=== PATIENT | female | born 1940 | race American Indian/Alaskan Native ===

== ENCOUNTER 2017-12-05 17:59 | Emergency (ER) | payer MEDICARE ==
[2017-12-05] MEDS ORDERED: BOOSTRIX IM ONE ×2 (19:38→23:05)
--- NOTE | 2017-12-05 19:48 | Emergency Department Report ---
HPI - General Chief Complaint: Fall Time Seen by Provider: 12/05/17 18:52 - HPI HPI: 77-year-old female presents to the emergency department via EMS from [facility] after she fell while getting out of bed and hit her forehead on something in the bedroom. It does not sound like the patient lost consciousness but it is unknown. She has a small laceration or abrasion to the left eyebrow. There is a note that the patient was previously holding her right arm and shoulder but currently she denies any other areas of discomfort. She has a past medical history of hypertension, non-insulin- dependent diabetes, gout. 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 It does not appear as if the patient is up-to-date with her tetanus boosters. ED Past Medical Hx - Past Medical History Hx Hypertension: Yes Hx CVA: Yes Hx Diabetes: Yes Hx Seizures: Yes Additional medical history: Gout, Muscle Weakness, Dyspagia, - Medications Home Medications: Home Medications Medication Instructions Recorded Confirmed Last Taken Type Nitrofurantoin [place]/M-Cryst 100 mg PO BID #14 capsule 12/06/17 Unknown Rx [Macrobid CAP] ED Review of Systems ROS: Stated complaint: FALL/HIT HEAD Other details as noted in HPI Comment: All other systems reviewed and negative Constitutional: denies: chills, fever Eyes: denies: eye pain, eye discharge, vision change ENT: denies: ear pain, throat pain Respiratory: denies: cough, shortness of breath, wheezing Cardiovascular: denies: chest pain, palpitations Gastrointestinal: denies: abdominal pain, nausea, diarrhea Genitourinary: denies: urgency, dysuria, discharge Musculoskeletal: denies: back pain, joint swelling, arthralgia Skin: other (laceration / abrasion to the left eyebrwo). denies: rash, lesions Neurological: denies: numbness, paresthesias Physical Exam - Physical Exam Vital Signs: Vital Signs 12/05/17 19:20 Temperature 98.5 F Pulse Rate 80 Respiratory 21 Rate Blood Pressure 160/88 O2 Sat by Pulse 94 Oximetry Physical Exam: GENERAL: The patient is well-developed well-nourished. HENT: Normocephalic. Atraumatic. Patient has moist mucous membranes. EYES: Extraocular motions are intact. Pupils equal reactive to light bilaterally. NECK: Supple. Trachea is midline. CHEST/LUNGS: Clear to auscultation. There is no respiratory distress noted. HEART/CARDIOVASCULAR: Regular. There is no tachycardia. There is no murmur. ABDOMEN: Abdomen is soft, nontender. Patient has normal bowel sounds. There is no abdominal distention. SKIN: Skin is warm and dry. NEURO: The patient is awake, alert and cooperative. The patient has normal speech. Cranial nerves II through XII grossly intact. MUSCULOSKELETAL: There is no tenderness or deformity. There is no evidence of acute injury. ED Course Vital Signs 12/05/17 19:20 Temperature 98.5 F Pulse Rate 80 Respiratory 21 Rate Blood Pressure 160/88 O2 Sat by Pulse 94 Oximetry ED Medical Decision Making - Lab Data Result diagrams: 12/05/17 20:08 12/05/17 20:08 - Radiology Data Radiology results: report reviewed, image reviewed interpreted by me: Chest x-ray does not show any acute process. There are no pleural effusions, obvious pneumonia and there is no pneumothorax. X-ray of the pelvis does not show any fracture, dislocation or any other acute process. EXAM: CT CERVICAL SPINE WO CON HISTORY: Fall TECHNIQUE: Spiral CT scanning of the cervical spine, with axial and multiplanar reformations. PRIORS: None. FINDINGS: Diffuse osteopenia. Mild dextroconvex curvature may be positional versus soft tissue spasm. Mild rightward rotation of C1 relative to C2 may be positional versus rotatory subluxation. Multilevel degenerative disc disease and spondylosis. No acute compression deformity or gross malalignment of cervical vertebral bodies. No acute fracture identified. No acute, osseous central spinal canal encroachment. Paraspinal soft tissues grossly unremarkable. Probable left pleural effusion partially visualized. IMPRESSION: 1. No acute compression deformity or apparent fracture in the cervical spine. 2. Degenerative spondylosis. Transcribed By: [facility] Dictated By: BENJAMIN SHARMA MD Electronically Authenticated By: BENJAMIN SHARMA MD Signed Date/Time: 12/05/17 2800 EXAM: CT FACIAL BONES WO CON HISTORY: Fall TECHNIQUE: Spiral CT scanning of the facial bones with multiplanar reformations. PRIORS: None. FINDINGS: No acute fracture. Mandible, zygomatic arches, orbits, paranasal sinuses, and pterygoid plates appear intact. Optic globes grossly intact. Patient is edentulous. IMPRESSION: 1. No acute fracture. Transcribed By: [facility] Dictated By: BENJAMIN SHARMA MD Electronically Authenticated By: BENJAMIN SHARMA MD Signed Date/Time: 12/05/17 4188 EXAM: CT HEAD/BRAIN WO CON HISTORY: Fall TECHNIQUE: Noncontrast CT axial images of the brain. PRIORS: None. FINDINGS: No parenchymal mass, mass effect, hemorrhage, midline shift or hydrocephalus. No evidence of acute cortical infarct. No abnormal, extra-axial fluid or air collection. Mild, patchy low density in the periventricular and subcortical white matter is nonspecific, but may relate to chronic small vessel ischemic change. Age-related volume loss. Osseous calvarium grossly intact. Diffuse mucosal thickening and opacification of left middle ear cavity and mastoid air complex. Partial opacification of right mastoid air complex. IMPRESSION: 1. No acute intracranial findings. 2. Chronic ischemic and atrophic changes. 3. Left otomastoiditis and mild right mastoid sinus disease. Transcribed By: [facility] Dictated By: BENJAMIN SHARMA MD Electronically Authenticated By: BENJAMIN SHARMA MD Signed Date/Time: 12/05/17 0738 - Medical Decision Making The patient presented for evaluation from her halfway after was some type of a fall out of bed where she hit the forehead and caused a small abrasion/ laceration. The patient has not been ambulatory for the past 3-4 months so it is not known exactly how the patient had a fall out of bed. She is awake, cooperative and at what her family says is her baseline mental status. She is a small abrasion or laceration to the left eyebrow that does not appear to need any type of significant closure. CT of the head, CT of the cervical spine and CT of the facial bones were done that did not show any fracture, dislocation or any other acute processes. X-rays were done of the chest and pelvis and also did not show any acute process. Patient's labs did show a urinary tract infection and the patient was placed on antibiotics. The door to the patient's labs were unremarkable but she did have some anemia with hemoglobin of 7.7 but she does have a history of anemia and has required transfusions in the past. The patient also has some elevation in her liver function enzymes. I spoke with the sequins winder who felt that these liver lab abnormalities can be worked up at the outpatient setting. Patient had some hypertension but came down with a dose of blood pressure medication. Otherwise her vital signs are stable throughout her ED course including being afebrile. The patient did have some mild sundowning and some agitation prior to getting the CT imaging and did require 1 dose of Ativan that seemed to help her throughout the rest of her ED course. All the labs, imaging results were discussed with the patient and her family. She will be returned to her halfway where the patient will need to see her primary care physician and possibly outpatient gastroenterology. They've been instructed to return the patient to the emergency Department with any worsening of her symptoms or any acute distress. - Differential Diagnosis fracture, brain bleed, laceration, abrasion, dementia, UTI Critical Care Time: No Critical care attestation.: If time is entered above; I have spent that time in minutes in the direct care of this critically ill patient, excluding procedure time. ED Disposition Clinical Impression: Elevated liver enzymes Fall Qualifiers: Encounter type: initial encounter Qualified Code(s): W19.XXXA - Unspecified fall, initial encounter Abrasion of left eyebrow Qualifiers: Encounter type: initial encounter Qualified Code(s): S00.212A - Abrasion of left eyelid and periocular area, initial encounter Anemia Qualifiers: Anemia type: unspecified type Qualified Code(s): D64.9 - Anemia, unspecified Hypertension Qualifiers: Hypertension type: essential hypertension Qualified Code(s): I10 - Essential ( primary) hypertension UTI (urinary tract infection) Qualifiers: Urinary tract infection type: acute cystitis Hematuria presence: with hematuria Qualified Code(s): N30.01 - Acute cystitis with hematuria Disposition: DC- TO HOME OR SELFCARE Is pt being admited?: No Condition: Stable Instructions: Abrasion (ED), Hypertension (ED), Anemia (ED), Fall Prevention ( ED) Additional Instructions: Please make sure that you follow up with your primary care physician regarding the elevated liver enzymes and your recent fall. Return to the emergency Department with any worsening of your symptoms or any acute distress. Make sure that you received your blood pressure medications and that a blood pressure log is kept. Try to stay away from foods that are high in salt and caffeinated products. Prescriptions: Nitrofurantoin [place]/M-Cryst [Macrobid CAP] 100 mg PO BID #14 capsule Referrals: PRIMARY CARE, [Primary Care Provider] - [facility]ULI Time of Disposition: 23:44
[2017-12-05 20:24] LABS: Hemoglobin 7.7 gm/dl (10.1-14.3); Mean Corpuscular HGB Conc 33 % (30-34); Mean Corpuscular Hemoglobin 27 pg (28-32); Mean Corpuscular Volume 80 fl (79-97); Red Blood Count 2.88 M/mm3 (3.65-5.03); Red Cell Distribution Width 16.8 % (13.2-15.2)
[2017-12-05 20:33] LABS: INR 1.19 (0.87-1.13)
[2017-12-05 20:34] LABS: Partial Thromboplastin Time 31.5 Sec. (24.2-36.6)
[2017-12-05 20:42] LABS: Alanine Aminotransferase 130 units/L (7-56); Albumin 2.8 g/dL (3.9-5); BUN/Creatinine Ratio 50; Blood Urea Nitrogen 25 mg/dL (7-17); Calcium 8.9 mg/dL (8.4-10.2); Hemolysis Index 5
[2017-12-05] MEDS ORDERED: NORMODYNE IV ONE ×2 (20:49→23:30)
[2017-12-05] MEDS ORDERED: APRESOLINE IV ONE (20:49)
[2017-12-05] MEDS ORDERED: ATIVAN ONE (21:56)
--- NOTE | 2017-12-05 21:56 | XRay Report ---
FINAL REPORT EXAM: XR CHEST 1V AP HISTORY: Fall TECHNIQUE: Single, portable chest x-ray. PRIORS: None. FINDINGS: Cardiac and mediastinal silhouette within normal limits. Lungs show partially confluent, parenchymal opacities projected over the right perihilar region and left lower lung, with some obscuration of left costophrenic angle. No other focal consolidation or apparent pneumothorax. Bony thorax without acute abnormality. IMPRESSION: 1. Findings which may represent atelectasis, infiltrates or postinflammatory change scattered in right perihilar region left lower lung, although posttraumatic change and contusions not completely excluded. Clinical correlation and radiographic followup after 4-6 weeks advised to document resolution.
[2017-12-05 21:58] LABS: Band Neutrophils # (Manual) 0.6 K/mm3; Basophils % (Manual) 0 % (0.0-1.8); Total Cells Counted 100
--- NOTE | 2017-12-05 21:58 | XRay Report ---
FINAL REPORT EXAM: XR PELVIS 1-2V HISTORY: fall TECHNIQUE: AP view of pelvis. PRIORS: None. FINDINGS: Dextroscoliotic and degenerative change in visualized lower lumbar spine. Mild degenerative changes scattered in the bilateral hip joints. No apparent fracture or dislocation. Soft tissues grossly unremarkable. Probable percutaneous enteric tube partially visualized. IMPRESSION: 1. No acute osseous abnormality. 2. Degenerative changes.
[2017-12-05 21:59] LABS: Anisocytosis 1+; Hypochromasia 1+; Large Platelets 1+; Platelet Estimate Appears Decreased
[2017-12-05 22:00] LABS: Platelet Count 95 K/mm3 (140-440)
--- NOTE | 2017-12-05 22:34 | Cat Scan Report ---
FINAL REPORT EXAM: CT HEAD/BRAIN WO CON HISTORY: Fall TECHNIQUE: Noncontrast CT axial images of the brain. PRIORS: None. FINDINGS: No parenchymal mass, mass effect, hemorrhage, midline shift or hydrocephalus. No evidence of acute cortical infarct. No abnormal, extra-axial fluid or air collection. Mild, patchy low density in the periventricular and subcortical white matter is nonspecific, but may relate to chronic small vessel ischemic change. Age-related volume loss. Osseous calvarium grossly intact. Diffuse mucosal thickening and opacification of left middle ear cavity and mastoid air complex. Partial opacification of right mastoid air complex. IMPRESSION: 1. No acute intracranial findings. 2. Chronic ischemic and atrophic changes. 3. Left otomastoiditis and mild right mastoid sinus disease.
--- NOTE | 2017-12-05 22:54 | Cat Scan Report ---
FINAL REPORT EXAM: CT FACIAL BONES WO CON HISTORY: Fall TECHNIQUE: Spiral CT scanning of the facial bones with multiplanar reformations. PRIORS: None. FINDINGS: No acute fracture. Mandible, zygomatic arches, orbits, paranasal sinuses, and pterygoid plates appear intact. Optic globes grossly intact. Patient is edentulous. IMPRESSION: 1. No acute fracture.
--- NOTE | 2017-12-05 22:57 | Cat Scan Report ---
FINAL REPORT EXAM: CT CERVICAL SPINE WO CON HISTORY: Fall TECHNIQUE: Spiral CT scanning of the cervical spine, with axial and multiplanar reformations. PRIORS: None. FINDINGS: Diffuse osteopenia. Mild dextroconvex curvature may be positional versus soft tissue spasm. Mild rightward rotation of C1 relative to C2 may be positional versus rotatory subluxation. Multilevel degenerative disc disease and spondylosis. No acute compression deformity or gross malalignment of cervical vertebral bodies. No acute fracture identified. No acute, osseous central spinal canal encroachment. Paraspinal soft tissues grossly unremarkable. Probable left pleural effusion partially visualized. IMPRESSION: 1. No acute compression deformity or apparent fracture in the cervical spine. 2. Degenerative spondylosis.
[2017-12-05] MEDS ORDERED: ATIVAN IV ONE (23:00)
[2017-12-06 00:47] LABS: Bacteria,Urine 1+ /HPF (Negative); Bilirubin,Urine NEG (Negative); Blood,Urine MOD (Negative); Color,Urine Yellow (Yellow); Mucus,Urine FEW /HPF; Urobilinogen,Urine < 2.0 mg/dL (<2.0)
[2017-12-06] MEDS ORDERED: MACROBID PO ONE (01:12)
[2017-12-06] MEDS ORDERED: MOTRIN PO ONE (01:14)
[2017-12-06 02:08] VITALS: BP 167/83
== END 2017-12-06 02:07 | disposition home or self-care (01) ==
LOC: ED 17:59
DX: S00.212A Abrasion of left eyelid and periocular area, initial encounter (principal); D64.9 Anemia, unspecified; R94.5 Abnormal results of liver function studies; N30.01 Acute cystitis with hematuria; I10 Essential (primary) hypertension; E11.9 Type 2 diabetes mellitus without complications; Z86.73 Personal history of transient ischemic attack (TIA), and cerebral infarction without residual deficits; W06.XXXA Fall from bed, initial encounter; Y93.89 Activity, other specified; Y92.092 Bedroom in other non-institutional residence as the place of occurrence of the external cause; Y99.8 Other external cause status
CPT/HCPCS: 36415; 70450; 70486; 71045; 72125; 72170; 80053; 81001; 84443; 84484; 85007; 85025; 85610; 85730; 90471; 90715; 96374; 99285; J2060